=== PATIENT | female | born 1965 | race Caucasian/White ===

== ENCOUNTER 2016-06-25 21:54 | Emergency (ER) | payer BC ==
--- NOTE | ~2016-06-25 | CR2 ---
[facility] A Service of [facility] RADIOLOGY TEXT RESULTS PATIENT: ANGY VUONG LOCATION: [facility] : 67 UNIT #: [id number] AGE: [address]: Sunny eLyva MD SEX: F ORDER DR: [id number] [facility] [address] [place], [place] [address] [id number] E MR#: [id number] #: [id number] NAME: ANGY VUONG. : 1965 SEX: F STUDY DATE/TIME: 06/25/2016 22:01 UNIT: [facility] ROOM: STUDY DESCRIPTION: CR Abdomen Acute Series Attending Physician: Moises Leyva M.D. Ordering Physician: Moises Leyva M.D. Primary Care Physician: Umair Regalado M.D. MEDICAL IMAGING REPORT This report is preliminary unless electronic signature is present EXAM Acute abdomen HISTORY Abdomen pain and constipation for 1 day. FINDINGS Flat and upright views of the abdomen and upright view of the chest demonstrates the bowel gas pattern is normal. No bowel dilatation or displacement. No free air. Surgical clips in the right upper quadrant. No abnormal calcifications. Cardiac size and pulmonary vascularity are within normal limits. No pulmonary infiltrates. IMPRESSION Negative exam. Normal bowel gas pattern. No active disease in the lungs. Dictated by... Marin Delgadillo M.D. THIS IS AN ELECTRONICALLY VERIFIED REPORT Marin Delgadillo M.D. at 06/26/2016 3:17 PM DFL/df TD: 06/26/2016 08:25 JOB #: [id number] MEDICAL IMAGING REPORT COPY
[2016-06-25 20:35] LABS: URINE SOURCE CLEAN CATCH
[2016-06-25 20:40] LABS: URINE APPEARANCE CLEAR; URINE BILIRUBIN NEG (NEG); URINE BLOOD NEG (NEG); URINE COLOR YELLOW; URINE GLUCOSE NEG (NEG); URINE KETONE TRACE (NEG); URINE LEUKOCYTE ESTERASE NEG (NEG); URINE NITRATE NEG (NEG); URINE PH 5.5 (5-8); URINE PROTEIN NEG (NEG); URINE SPECIFIC GRAVITY 1.023 (1.003-1.035)
[2016-06-25 20:40] LABS: BASOPHIL# 0.1 X10e3 (0-0.3); BASOPHIL% 1.4 % (0-2.5); EOSINOPHIL# 0.1 X10e3 (0-0.7); EOSINOPHIL% 1.7 % (0.0-7.0); HEMATOCRIT 39.8 % (35.0-45.0); LYMPHOCYTE# 1.9 X10e3 (1.0-3.5); MEAN CORPUSCULAR HEMOGLOBIN 27.1 PG (28-34); MEAN CORPUSCULAR HGB CONC 32.6 g/dL (30-36); MEAN PLATELET VOLUME 7.5 FL (6.5-11.5); MONOCYTE# 0.4 X10e3 (0-1.0); MONOCYTE% 5.7 % (3.0-12.0); NEUTROPHIL# 4.5 X10e3 (1.5-7.1); NEUTROPHIL% 64.2 % (40-75); PLATELET COUNT 313 X10e3 (140-420); RED BLOOD COUNT 4.79 X10e (3.90-5.30); RED CELL DISTRIBUTION WIDTH 13.8 % (11.0-15.5)
[2016-06-25 20:47] LABS: DIFF IND NO
[2016-06-25 21:02] LABS: ALBUMIN SERUM 4.2 g/dL (3.5-5.0); ALKALINE PHOSPHATASE 104 U/L (32-92); ALT (SGPT) 21 U/L (10-40); AMYLASE 29 U/L (0-46); AST (SGOT) 23 U/L (10-42); BILIRUBIN,TOTAL 0.3 mg/dL (0.2-2.0); BLOOD UREA NITROGEN 19 mg/dL (9-23); BUN/CREATININE RATIO 21.11; CALCIUM SERUM 9.6 mg/dL (8.4-10.2); CARBON DIOXIDE 27 mmol/L (22-31); CHLORIDE 102 mmol/L (100-111); CREATININE SERUM 0.9 mg/dL (0.6-1.4); GLOM FILT RATE Estimated ABOVE60 mL/min (>60); GLUCOSE FASTING 105 mg/dL (70-110); LIPASE 45 U/L (22-51); POTASSIUM 3.7 mmol/L (3.5-5.1); SODIUM 138 mmol/L (135-145)
[2016-06-25 21:04] LABS: BILIRUBIN, DIRECT <0.1 mg/dL (0.0-0.2); BILIRUBIN,INDIRECT 0.2 mg/dL (0.0-0.9)
[~2016-06-25 21:54] MED LIST: ADVIL200 M2 PO; AMLODIPINE BESY10 MG PO; AMOXICILLIN PO; ANTIVERT PO; CELEXA PO; CITALOPRAM HBR40 MG PO; COUMADIN4 MG PO; DARVOCET-N 1001 TAB PO; EFFEXOR PO; FERROUS SULFATE1 TAB PO; HYDROCHLOROTHIA25 MG PO; HYDROCODONE-APA1 T57 PO; IBUPROFEN PO; NORCO 10-325 TA1 TAB PO; PERCOCET PO; PHENERGAN25 MG PO; PREDNISONE PO; PRILOSEC PO; PRILOSEC40 MG PO; VOLTAREN50 MG PO
== END 2016-06-25 23:50 | disposition home or self-care (01) ==
LOC: CED 21:54
PROVIDERS: Student in an Organized Health Care Education/Training Program
DX: K59.00 Constipation, unspecified (principal); K21.9 Gastro-esophageal reflux disease without esophagitis; F32.9 Major depressive disorder, single episode, unspecified
CPT/HCPCS: 74022; 80048; 80076; 81003; 82150; 83690; 85025; 99284

== ENCOUNTER 2016-11-20 11:44 | Emergency (ER) | payer BC ==
[~2016-11-20] VITALS: Ht 152.4 cm; Wt 104.3 kg
--- NOTE | ~2016-11-20 | EKG ---
PATIENT: ANGY VUONG UNIT #: [id number] Ventricular Rate: 72 BPM Atrial Rate: 72 BPM P-R Interval: 144 ms QRS Duration: 64 ms Q-T Interval: 396 ms QTC Calculation(Bezet): 433 ms P Mcgraws: 41 degrees Calculated R Mcgraws: 7 degrees Calculated T Mcgraws: 28 degrees Diagnosis Line: Normal sinus rhythm Diagnosis Line: Low voltage QRS Diagnosis Line: Borderline ECG Diagnosis Line: When compared with ECG of 12-JUN-2012 09:00, Diagnosis Line: No significant change was found Diagnosis Line: Confirmed by CASS URENA MD ([id number]) on Diagnosis Line: 11/21/2016 5:05:04 PM INTERPRETING MD: AYANNA DAVIS
[2016-11-20 12:46] LABS: URINE SOURCE CLEAN CATCH
[2016-11-20 13:02] LABS: URINE APPEARANCE CLEAR; URINE BILIRUBIN NEG (NEG); URINE BLOOD NEG (NEG); URINE COLOR YELLOW; URINE GLUCOSE NEG (NEG); URINE KETONE NEG (NEG); URINE LEUKOCYTE ESTERASE NEG (NEG); URINE NITRATE NEG (NEG); URINE PH 7.5 (5-8); URINE PROTEIN NEG (NEG); URINE SPECIFIC GRAVITY 1.009 (1.003-1.035); URINE UROBILINOGEN 0.2 MG/DL (NEG)
[2016-11-20 13:03] LABS: CULTURE INDICATED? NO
[2016-11-20 14:39] LABS: BASOPHIL# 0.1 X10e3 (0-0.3); BASOPHIL% 1.2 % (0-2.5); EOSINOPHIL# 0.1 X10e3 (0-0.7); EOSINOPHIL% 2.4 % (0.0-7.0); HEMATOCRIT 39.7 % (35.0-45.0); HEMOGLOBIN 13.2 gm/dL (12.0-16.0); LYMPHOCYTE# 1.3 X10e3 (1.0-3.5); LYMPHOCYTE% 28.8 % (17.0-45.0); MEAN CELL VOLUME 82.9 FL (83-96); MEAN CORPUSCULAR HEMOGLOBIN 27.6 PG (28-34); MEAN CORPUSCULAR HGB CONC 33.3 g/dL (30-36); MEAN PLATELET VOLUME 7.2 FL (6.5-11.5); MONOCYTE# 0.2 X10e3 (0-1.0); MONOCYTE% 4.7 % (3.0-12.0); NEUTROPHIL# 2.9 X10e3 (1.5-7.1); NEUTROPHIL% 62.9 % (40-75); PLATELET COUNT 319 X10e3 (140-420); RED CELL DISTRIBUTION WIDTH 13.2 % (11.0-15.5); WHITE BLOOD COUNT 4.7 X10e3 (4.0-10.5)
[2016-11-20 14:46] LABS: DIFF IND NO
[2016-11-20 15:08] LABS: ALBUMIN SERUM 4.5 g/dL (3.5-5.0); ALKALINE PHOSPHATASE 99 U/L (32-92); ALT (SGPT) 32 U/L (10-40); AST (SGOT) 36 U/L (10-42); BILIRUBIN, DIRECT <0.1 mg/dL (0.0-0.2); BILIRUBIN,INDIRECT 0.4 mg/dL (0.0-0.9); BILIRUBIN,TOTAL 0.5 mg/dL (0.2-2.0); BLOOD UREA NITROGEN 12 mg/dL (9-23); CALCIUM SERUM 9.3 mg/dL (8.4-10.2); CARBON DIOXIDE 28 mmol/L (22-31); CHLORIDE 101 mmol/L (100-111); CREATININE SERUM 0.8 mg/dL (0.6-1.4); GLOM FILT RATE Estimated 86.6 mL/min (>60); GLUCOSE FASTING 145 mg/dL (70-110); POTASSIUM 3.4 mmol/L (3.5-5.1); PROTEIN TOTAL SERUM 7.7 g/dL (6.0-8.3); SODIUM 138 mmol/L (135-145)
[2016-11-20 15:46] LABS: POC - TROPONIN <0.05 ng/mL (<=0.05)
== END 2016-11-20 16:01 | disposition home or self-care (01) ==
LOC: CED 11:44
PROVIDERS: Emergency Medicine
DX: I10 Essential (primary) hypertension (principal); F41.9 Anxiety disorder, unspecified; Z90.49 Acquired absence of other specified parts of digestive tract; Z88.8 Allergy status to other drugs, medicaments and biological substances
CPT/HCPCS: 36415; 80048; 80076; 81003; 82553; 84484; 85025; 93005; 99285